=== PATIENT | male | born 1950 | race Caucasian/White ===

== ENCOUNTER 2016-11-30 11:01 | Emergency (ER) | payer OTHER ==
[~2016-11-30] VITALS: Ht 177.8 cm; Wt 99.8 kg
--- NOTE | 2016-11-30 11:49 | ED GENERAL ADULT ---
History of Present Illness General Chief Complaint: Dizziness Stated Complaint: DIZZY, X 3 DAYS Source: patient Exam Limitations: no limitations Allergies Coded Allergies: No Known Allergies (11/30/16) Triage Note: TRIAGE: 66 Y/O MALE PRESENTS C/O DIZZINESS X3 DAYS, REPORTS A SLIGHT PRESSURE AT THE BASE OF THE SKULL. REPORTS INTERMITTENT SOB. DENIES CHEST PAIN OR ABDOMINAL PAIN. DENIES VISUAL CHANGES. Triage Nurses Notes Reviewed? yes HPI: This patient is a 66-year-old male with a past medical history including dizziness who presented to the emergency department today for evaluation of dizziness 3 days. The patient reported that the dizziness has been constant. He reported that it is worse with standing. When he is laying down, he feels, "fine." He reported that he got dizzy yesterday and, "rolled off a couch." He denied hitting his head or losing consciousness. He reported that the couch is very low to the ground. He reported that he has had episodes like this in the past, but never falling. He has talked to his primary care physician about this , but never taken any medication for it or seen a neurologist. The patient denied any chest pain, difficult breathing, visual changes, headaches, numbness or tingling in his extremities, jaw pain, arm pain, abdominal pain, or vomiting. He did report a mild amount of associated nausea yesterday, but not currently. (YUNI CHANDLER,JERSON) Vital Signs & Intake/Output Vital Signs & Intake/Output Vital Signs Date Time Temp Pulse Resp B/P B/P Pulse O2 O2 Flow FiO2 Mean Ox Delivery Rate 11/30 1317 97.2 65 18 155/86 98 Room Air 11/30 1235 Room Air ED Intake and Output 12/01 0000 11/30 1200 Intake Total Output Total Balance Patient 220 lb Weight Weight Reported by Patient Measurement Method Reconcile Medications Meclizine HCl 25 MG TABLET 1 TAB PO TIDPRN PRN DIZZINESS (TORSTEN MARTIN,KANE) Past History Travel History Traveled to [place] past 21 day No Medical History Any Pertinent Medical History? 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 No (JERSON MORRISSEY PA-C) Review of Systems Review of Systems Constitutional: Reports: no symptoms. EENTM: Reports: no symptoms. Respiratory: Reports: no symptoms. Cardiovascular: Reports: no symptoms. GI: Reports: see HPI. Genitourinary: Reports: no symptoms. Musculoskeletal: Reports: no symptoms. Skin: Reports: no symptoms. Neurological/Psychological: Reports: see HPI. All Other Systems: Reviewed and Negative (JERSON MORRISSEY PA-C) Physical Exam Physical Exam General Appearance: well developed/nourished, no apparent distress, alert, awake Comments: Well-developed well-nourished person in no acute distress HEENT: Normal EENT exam, head normocephalic/atraumatic. No bony deformity/step- offs of the skull, moist mucous membranes PERRLA bilaterally. EOMI bilaterally with horizontal, fatiguing nystagmus Mild amount of cerumen noted to bilateral external auditory canals Negative Dicks Hallpike maneuver Neck: Supple, no lymphadenopathy Back: Normal gait. Normal inspection Cardiovascular: Regular rate and rhythm with no murmurs, rubs, or gallops Respiratory: Chest nontender. No respiratory distress. Breath sounds clear to auscultation bilaterally Extremity: Normal equal pulses Neuro: Alert oriented x3, cranial nerves II through XII grossly intact. 5 out of 5 muscular strength in all extremities. No facial droop. No unilateral weakness. No aphasia Skin: No appreciable rash on exposed skin, skin is warm and dry. Psych: Mood and affect is normal Core Measures ACS in differential dx? Yes CVA/TIA Diagnosis: No Severe Sepsis Present: No Septic Shock Present: No (JERSON MORRISSEY PA-C) Progress Differential Diagnoses I considered the following diagnoses in my evaluation of the patient: [Vertigo, Mnire's disease, labyrinthitis, intercranial hemorrhage, intercranial mass, orthostatic hypotension, ACS] Plan of Care: Orders Procedure Date/time Status EKG 11/30 1111 Active Initial ED EKG: normal axis, normal intervals, normal sinus rhythm, no ST T wave changes, 62 BPM Comments: 11/30/2016 12:03:22 PM: I discussed with this patient the option for getting a CT scan of the head to rule out any intracranial process causing his symptoms as he did endorse some mild pressure at the base of his skull. The patient is refusing at this time. This patient is not orthostatic 11/30/2016 1:05:39 PM: I was at the patient's bedside for reevaluation. He reported significant improvement. He reported that he is no longer dizzy and no longer is experiencing pressure at the base of his skull. He will be given neurology follow-up. (JERSON MORRISSEY PA-C) Departure Departure Disposition: HOME OR SELF CARE Condition: Stable Clinical Impression Primary Impression: Vertigo Referrals: ALYSIA MARTIN,DEN FORREST,TYRA MADERA (PCP/Family) Additional Instructions: Take medication as prescribed for dizziness. You may follow up with the neurologist whose information has been provided to you in this packet. Return for any worsening symptoms or concerns. Departure Forms: Customer Survey General Discharge Information Prescriptions: Current Visit Scripts Meclizine HCl 1 TAB PO TIDPRN PRN DIZZINESS #12 TAB (JERSON MORRISSEY PA-C) PA/POEM WRITER Co-Sign Statement Statement: ED Attending supervision documentation- x I saw and evaluated the patient. I have also reviewed all the pertinent lab results and diagnostic results. I agree with the findings and the plan of care as documented in the PA's/POEM WRITER's documentation. [] I have reviewed the ED Record and agree with the PA's/POEM WRITER's documentation. [] Additions or exceptions (if any) to the PAs/POEM WRITER's note and plan are summarized below: [] (TORSTEN MARTIN,KANE) Critical Care Note Critical Care Note Critical Care Time: non-applicable (JERSON MORRSISEY PA-C)
[2016-11-30] MEDS ORDERED: MECLIZINE HCL25 MG PO (13:07)
[2016-11-30 13:17] VITALS: BP 155/86
== END 2016-11-30 13:21 ==
LOC: ERH 11:01
DX: R42 Dizziness and giddiness (principal)
CPT/HCPCS: 93005; 93010